=== PATIENT | female | born 2000 | race Caucasian/White ===

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

== ENCOUNTER 2022-05-20 17:13 | Emergency (ER) | payer BC, MEDICAID ==
[2022-05-20 17:38] VITALS: O2SAT 100
[2022-05-20 18:11] LABS: Basophil (Absolute #) 0.04 x10^3/uL (0-0.4); Eosinophil % 2.3 % (0.00-5.0); Eosinophil (Absolute #) 0.14 x10^3/uL (0-0.5); Hematocrit 34.1 % (35-47); Hemoglobin 10.5 g/dL (12.0-16.0); Lymphocyte (Absolute #) 2.21 x10^3/uL (1.0-4.6); Mean Cell Volume 76.6 fL (78-100); Mean Corpuscular Hemoglobin 23.6 pg (26-32); Mean Corpuscular Hgb Concent. 30.8 g/dL (32-36); Mean Platelet Volume 11.1 fL (7.5-11.0); Monocyte (Absolute #) 0.48 x10^3/uL (0.0-1.3); Neutrophil % 51.8 % (36.0-66.0); Platelet Count 240 x10^3/uL (150-450); Red Blood Count 4.45 x10^6/uL (4.1-5.4); Red Cell Distribution Width 14.2 % (11.5-14.0)
--- NOTE | 2022-05-20 18:19 | ERPHSYRPT ---
- History of Present Illness Source: patient, other (Significant other) Exam Limitations: no limitations Patient Subjective Stated Complaint: /cramping Triage Nursing Assessment: Patient ambulated back to ED and transferred self to bed. Patient A+O X3. Patient's skin pink, warm and dry. Patient states she felt like she was pregant and started spotting yesterday. Patient states she took a home test last night, which was positive. Patient states she started cramping in lower pelvic area today 6/10. Patient denies vaginal bleeding at this time. Physician History: 22 yo wf w + test yesterday at home presents w pelvic cramping since AM. Pain is 5/10 and nothing makes better or worse. She denies vaginal bleeding/discharge, along w dysuria/hematuria/fever/N/V/D. Pt has a 5mo child and is not breast feeding. Timing/Duration: today Activites at Onset: rest Quality: cramping Onset Location: suprapubic Pain Radiation: none Severity of Pain-Max: moderate Severity of Pain-Current: moderate Prior abdominal problems: none Sexual intercourse history: unprotected intercourse Modifying Factors: Improves With: nothing Associated Symptoms: denies symptoms, abdominal pain Allergies/Adverse Reactions: No Known Drug Allergies Allergy (Verified 05/20/22 17:31) Home Medications: Bupropion HCl 150 mg Sr [Wellbutrin SR 150 MG] 1 tab PO DAILY 05/20/22 [History] Hx Tetanus, Diphtheria Vaccination/Date Given: Yes Hx Influenza Vaccination/Date Given: No Hx Pneumococcal Vaccination/Date Given: No Travel Risk - International Travel Have you traveled outside of the country in past 3 weeks: No - Coronavirus Screening Are you exhibiting any of the following symptoms?: No Close contact with a COVID-19 positive Pt in past 14-21 Days: No - Vaccine Status Have you recieved a Covid-19 vaccination: Yes Meat Scrubber: Moderna - Vaccination Dates Date of 2cond Vaccination (if applicable): na - Review of Systems Constitutional: No Symptoms Eyes: No Symptoms Ears, Nose, & Throat: No Symptoms Respiratory: No Symptoms Cardiac: No Symptoms Abdominal/Gastrointestinal: No Symptoms, Abdominal Pain Genitourinary Symptoms: No Symptoms, Musculoskeletal: No Symptoms Skin: No Symptoms Neurological: No Symptoms Psychological: No Symptoms Endocrine: No Symptoms Hematologic/Lymphatic: No Symptoms Immunological/Allergic: No Symptoms - Past Medical History Pertinent Past Medical History: Yes Neurological History: Migraines ENT History: No Pertinent History Cardiac History: No Pertinent History Respiratory History: No Pertinent History Endocrine Medical History: No Pertinent History Musculoskeletal History: No Pertinent History GI Medical History: No Pertinent History History: No Pertinent History Psycho-Social History: Anxiety, Depression Female Reproductive Disorders: No Pertinent History Other Medical History: HEART MURMER THAT IS NONSIGNIFICANT; CHRONIC MIGRAINES THAT SHE REPORTS TO HAVE ALMOST DAILY - Past Surgical History Past Surgical History: No Neuro Surgical History: No Pertinent History Cardiac: No Pertinent History Respiratory: No Pertinent History Gastrointestinal: No Pertinent History Genitourinary: No Pertinent History Musculoskeletal: No Pertinent History Female Surgical History: Section - Social History Smoking Status: Never smoker Exposure to second hand smoke: Yes Drug Use: methamphetamines, heroin Patient Lives Alone: No Significant Family History: heart disease - Female History Hx Last Menstrual Period: unknown Hx Now: Yes Gestational Age: unknown - Nursing Vital Signs Nursing Vital Signs: Initial Vital Signs Temperature 97.6 F 05/20/22 17:32 Pulse Rate 96 H 05/20/22 17:32 Respiratory Rate 18 05/20/22 17:32 Blood Pressure 127/90 05/20/22 17:32 O2 Sat by Pulse Oximetry 100 05/20/22 17:32 Pain Scale Pain Intensity 6 WNL - Physical Exam General Appearance: no apparent distress Eye Exam: PERRL/EOMI, eyes nml inspection Ears, Nose, Throat Exam: normal ENT inspection, TMs normal, pharynx normal, moist mucous membranes Neck Exam: normal inspection, non-tender, supple, full range of motion, No meningismus, No mass, No Brudzinski, No Kernig's Respiratory Exam: normal breath sounds, lungs clear, airway intact Cardiovascular Exam: regular rate/rhythm, normal heart sounds, normal peripheral pulses, capillary refill <2 sec, No murmur Gastrointestinal/Abdomen Exam: soft, normal bowel sounds, tenderness (Mild supra-pubic TTP wo guarding or rebound) Back Exam: normal inspection, normal range of motion, No CVA tenderness, No vertebral tenderness Extremity Exam: normal inspection, normal range of motion Neurologic Exam: alert, oriented x 3, cooperative, after school caregiver II-XII nml as tested, normal mood/affect, nml cerebellar function, nml station & gait, sensation nml Skin Exam: normal color, warm, dry, No rash Lymphatic Exam: No adenopathy SpO2 Interpretation: normal SpO2: 100 O2 Delivery: Room Air - Course Nursing assessment & vital signs reviewed: Yes Ordered Tests: Active Orders 24 hr Category Date Time Status CBC W DIFF Stat Lab 05/20/22 18:07 Completed HCG QUALITATIVE,SERUM Stat Lab 05/20/22 18:07 Completed UA W/RFX UR CULTURE Stat Lab 05/20/22 18:04 Completed Lab/Rad Data: Laboratory Result Diagrams 05/20/22 18:07 Laboratory Results 05/20/22 05/20/22 05/20/22 Range/Units 18:07 18:07 18:04 WBC 6.0 (4.0-10.5) x10^3/uL RBC 4.45 (4.1-5.4) x10^6/uL Hgb 10.5 L (12.0-16.0) g/dL Hct 34.1 L (35-47) % MCV 76.6 L (78-100) fL MCH 23.6 L (26-32) pg MCHC 30.8 L (32-36) g/dL RDW 14.2 H (11.5-14.0) % Plt Count 240 (150-450) x10^3/uL MPV 11.1 H (7.5-11.0) fL Gran % 51.8 (36.0-66.0) % Immature Gran % (Auto) 0.2 (0.00-0.4) % Nucleat RBC Rel Count 0.0 (0.00-0.1) % Eos # (Auto) 0.14 (0-0.5) x10^3/uL Immature Gran # (Auto) 0.01 (0.00-0.03) x10^3u/L Absolute Lymphs (auto) 2.21 (1.0-4.6) x10^3/uL Absolute Monos (auto) 0.48 (0.0-1.3) x10^3/uL Absolute Nucleated RBC 0.00 (0.00-0.01) x10^3u/L Lymphocytes % 37.0 (24.0-44.0) % Monocytes % 8.0 (0.0-12.0) % Eosinophils % 2.3 (0.00-5.0) % Basophils % 0.7 (0.0-0.4) % Absolute Granulocytes 3.10 (1.4-6.9) x10^3/uL Basophils # 0.04 (0-0.4) x10^3/uL Serum , Qual NEGATIVE (Negative) Urine Color Yellow (Yellow) Urine Appearance Clear (Clear) Urine pH 7.0 (4.6-8.0) Ur Specific [place] 1.025 (1.005-1.030) Urine Protein Negative (Negative) Urine Ketones Negative (Negative) Urine Blood Negative (Negative) Urine Nitrite Negative (Negative) Urine Bilirubin Negative (Negative) Urine Urobilinogen 1.0 A (0.2) mg/dL Ur Leukocyte Esterase Trace A (Negative) U Hyaline Cast (Auto) 0-2 (0-2) /LPF Urine Microscopic RBC 0-2 (0-5) /HPF Urine Microscopic WBC 3-5 (0-5) /HPF Ur Epithelial Cells Few (None Seen) /HPF Urine Bacteria None Seen (None Seen) /HPF Urine Culture Reflexed NO (NO) Urine Glucose Negative (Negative) mg/dL - Progress Progress Note: 05/20/22 18:33 Pt in NAD wo evidence of or acute abdomen. Doubt PID as no vaginal discharge or fever. All labs reviewed and results shared w pt. 05/20/22 18:34 05/20/22 18:38 Counseled pt/family regarding: lab results, diagnosis, need for follow-up - Departure Departure Disposition: Home Clinical Impression: Pelvic cramping Condition: Stable Critical Care Time: No Referrals: KALLIE LAM NP [Primary Care Provider] - Follow up/PCP as directed Instructions: Pelvic Pain ED Additional Instructions: Motrin/Tylenol for pain Follow up with your family MD or Ob in 1-2 days Return to ER for increasing pain or temperature greater than 100.5
[2022-05-20 18:22] LABS: Appearance Clear (Clear); Bacteria None Seen /HPF (None Seen); Bilirubin Negative (Negative); Blood Negative (Negative); Epithelial Cells Few /HPF (None Seen); Glucose Negative (Negative); Hyaline Casts 0-2 /LPF (0-2); Ketones Negative (Negative); Leukocyte Esterase Trace (Negative); Nitrite Negative (Negative); Protein,Urine Dip Negative (Negative); RBC 0-2 /HPF (0-5); Specific Gravity 1.025 (1.005-1.030)
[2022-05-20 18:25] LABS: ADD URINE CULTURE? NO (NO)
[2022-05-20 18:39] VITALS: BP 111/70; PULSE 79
== END 2022-05-20 18:45 | disposition home or self-care (01) ==
LOC: ED 17:13
DX: R10.2 Pelvic and perineal pain (principal); Z79.899 Other long term (current) drug therapy
CPT/HCPCS: 36415; 81001; 84703; 85025; 99282

== ENCOUNTER 2022-08-17 23:22 | Emergency (ER) | payer MEDICAID ==
[2022-08-17 23:40] VITALS: O2SAT 100
[2022-08-17] MEDS ORDERED: TYLENOL 325 MG PO STA (23:43)
--- NOTE | 2022-08-17 23:43 | ERPHSYRPT ---
- History of Present Illness Time Seen by Provider: 08/17/22 23:43 Source: patient Exam Limitations: no limitations Patient Subjective Stated Complaint: [place] my foot went in a hole and twisted it. Triage Nursing Assessment: pt ambulated into the er; pt is axo x4; c/o rt ankle pain; no swelling, deformity, or swelling present; no respiratory distress present; skin PDW; hypertensive Physician History: Patient reports twisting ankle last week and had been walking it off, but today she twisted the ankle again while [place]. Her pain is on the lateral aspect of the right ankle. There is some mild swelling, no bruising. She is able to walk on the ankle. No numbness or tingling. She does report previous sprains. No surgeries. No otc meds trialed. Method of Injury: twisted Occurred: this afternoon Quality: constant, aching, dullness Severity of Pain-Max: moderate Severity of Pain-Current: moderate Lower Extremities Pain: ankle: right Modifying Factors: Improves With: rest. Worsens With: movement Associated Symptoms: none Allergies/Adverse Reactions: No Known Drug Allergies Allergy (Verified 08/17/22 23:30) Home Medications: Bupropion HCl 150 mg Sr [Wellbutrin SR 150 MG] 2 tab PO DAILY 05/20/22 [History] Atogepant [Qulipta] 1 tab PO DAILY 08/17/22 [History] Hx Tetanus, Diphtheria Vaccination/Date Given: Yes Hx Influenza Vaccination/Date Given: No Hx Pneumococcal Vaccination/Date Given: No Travel Risk - International Travel Have you traveled outside of the country in past 3 weeks: No - Coronavirus Screening Are you exhibiting any of the following symptoms?: No Close contact with a COVID-19 positive Pt in past 14-21 Days: No - Vaccine Status Have you recieved a Covid-19 vaccination: Yes Cloth Presser: Moderna - Vaccination Dates Date of 2cond Vaccination (if applicable): unknown - Review of Systems Constitutional: No Symptoms Eyes: No Symptoms Ears, Nose, & Throat: No Symptoms Respiratory: No Symptoms Cardiac: No Symptoms Abdominal/Gastrointestinal: No Symptoms Genitourinary Symptoms: No Symptoms Musculoskeletal: Injury, Joint Pain (right ankle), Joint Swelling (right ankle), No Deformity, No Joint Redness Skin: No Symptoms Neurological: No Symptoms Psychological: No Symptoms Endocrine: No Symptoms Hematologic/Lymphatic: No Symptoms Immunological/Allergic: No Symptoms All Other Systems: Reviewed and Negative - Past Medical History Pertinent Past Medical History: Yes Neurological History: Migraines ENT History: No Pertinent History Cardiac History: No Pertinent History, Other Respiratory History: No Pertinent History Endocrine Medical History: No Pertinent History Musculoskeletal History: No Pertinent History GI Medical History: No Pertinent History History: No Pertinent History Psycho-Social History: Anxiety, Depression Female Reproductive Disorders: No Pertinent History Other Medical History: HEART MURMER THAT IS NONSIGNIFICANT; CHRONIC MIGRAINES THAT SHE REPORTS TO HAVE ALMOST DAILY - Past Surgical History Past Surgical History: No Neuro Surgical History: No Pertinent History Cardiac: No Pertinent History Respiratory: No Pertinent History Gastrointestinal: No Pertinent History Genitourinary: No Pertinent History Musculoskeletal: No Pertinent History Female Surgical History: Section - Social History Smoking Status: Light tobacco smoker Exposure to second hand smoke: Yes Drug Use: none, methamphetamines, heroin Patient Lives Alone: No Significant Family History: heart disease - Female History Hx Now: No - Nursing Vital Signs Nursing Vital Signs: Initial Vital Signs Temperature 96.7 F 08/17/22 23:32 Pulse Rate 93 H 08/17/22 23:32 Respiratory Rate 14 08/17/22 23:32 Blood Pressure 149/80 08/17/22 23:32 O2 Sat by Pulse Oximetry 100 08/17/22 23:32 Pain Scale Pain Intensity 7 - Physical Exam General Appearance: no apparent distress Eyes, Ears, Nose, Throat Exam: normal ENT inspection Neck Exam: normal inspection Ankle Exam: right ankle: normal inspection, normal range of motion, bone tenderness (lateral malleolus), pain, soft tissue tenderness, swelling Neuro/Tendon Exam: normal sensation, normal motor functions, responds to pain, no evidence tendon injury Mental Status Exam: alert, oriented x 3, cooperative Skin Exam: normal color, warm, dry SpO2 Interpretation: normal SpO2: 100 O2 Delivery: Room Air - Course Nursing assessment & vital signs reviewed: Yes - Radiology Exams Right Ankle X-ray Interpretation: Interpreted by me, Negative Ordered Tests: Active Orders 24 hr Category Date Time Status Ice Pack, Apply ONCE Care 08/17/22 23:43 Active ANKLE (3 VIEWS) Stat Exams 08/17/22 23:31 Taken Medication Summary Discontinued Medications Generic Name Dose Route Start Last Admin Trade Name Freq PRN Reason Stop Dose Admin Acetaminophen 975 mg 08/17/22 23:43 08/17/22 23:47 Acetaminophen 325 Mg Tablet PO 08/17/22 23:44 975 mg STAT STA Administration Acetaminophen Confirm 08/17/22 23:46 Acetaminophen 325 Mg Tablet Administered 08/17/22 23:47 Dose 975 mg .ROUTE .STK-MED ONE - Progress Progress: improved Progress Note: 08/18/22 00:11 XR showed no fracture. Will d/c home w/ violetta wrap. Recommend rest, ice, compression, elevation. F/U at walk in ortho clinic on Saturday if no improvement. Ok to take Tylenol/Ibuprofen prn for pain. Counseled pt/family regarding: need for follow-up, rad results Medical Desision Making - Diagnostic Testing Diagnostic test were ordered, analyzed, and reviewed by me: Yes Radiological Interpretation: Interpreted by me - Risk of complications Low Risk: Low risk of morbidity from additional dx testing or treatment - Departure Departure Disposition: Home Clinical Impression: Right ankle sprain, Right ankle instability Condition: Good Critical Care Time: No Referrals: KALLIE LAM NP [Primary Care Provider] - Follow up/PCP as directed ORTHO - DILLON PINK NP [NON-STAFF PHY W/O PRIVILEGES] - Follow up/PCP as directed Instructions: Ankle Sprain (DC) Additional Instructions: You have been evaluated in the Emergency Department today for ankle pain. Your evaluation showed no fracture of your ankle. We have placed your ankle in an violetta bandage for compression. Please rest, ice, and elevate your ankle. We recommend you take 600mg ibuprofen every 6 hours or tylenol 650mg every 6 hours as needed for pain. If needed, you can alternate these medications so that you take one medication every 3 hours. For instance, at noon take ibuprofen, then at 3pm take tylenol, then at 6pm take ibuprofen. F/U w/ walk in ortho clinic on Saturday morning if no improvement. Return to the Emergency Department if you experience worsening pain, numbness, tingling, change of color in your toes, or any other concerning symptoms. Thank you for choosing us for your care.
[2022-08-17] MEDS ORDERED: TYLENOL 325 MG ONE (23:46)
[2022-08-18 00:31] VITALS: BP 138/80; PULSE 94
--- NOTE | 2022-08-18 08:09 | XRAY ---
Indication: Pain following fall. Comparison: December 24, 2015 3 view right ankle obtained. Again no bony, articular, or soft tissue abnormalities.
== END 2022-08-18 00:31 | disposition home or self-care (01) ==
LOC: ED 23:22
DX: S93.401A Sprain of unspecified ligament of right ankle, initial encounter (principal); X50.0XXA Overexertion from strenuous movement or load, initial encounter; Y93.01 Activity, walking, marching and hiking; Y92.821 Forest as the place of occurrence of the external cause; M25.371 Other instability, right ankle; Z79.899 Other long term (current) drug therapy; Z72.0 Tobacco use
CPT/HCPCS: 73610; 99282; A9270-GY

== ENCOUNTER 2023-04-29 14:03 | Emergency (ER) | payer MEDICAID ==
[2023-04-29 14:12] VITALS: BP 135/94; PULSE 90; RESP 20; TEMP 97.1; O2SAT 99
[2023-04-29] MEDS ORDERED: TORAdol 30 mg Injection IM ONE (14:16)
--- NOTE | 2023-04-29 14:21 | ERPHSYRPT ---
- History of Present Illness Source: patient Exam Limitations: no limitations Patient Subjective Stated Complaint: Pt states "I fell out of my husbands truck and my right foot and ankle hurts." Triage Nursing Assessment: Pt presented alert and oriented X 3, skin wpd. Pt am bulates with a limp. Pt right ankle swollen and slightly bruised, to right glass cut off tender to touch Physician History: Patient is a 23-year-old female who fell out of her 's semitruck today injuring her right foot and ankle. Pain is moderate to severe and worse with weight bearing. She denies any other injuries at this time, including head injury, cervical injury, T or L-spine injury, chest injury, abdominal injury, and hip pain. Method of Injury: fell Occurred: just prior to arrival Quality: constant Severity of Pain-Max: severe Severity of Pain-Current: moderate Lower Extremities Pain: foot: right, ankle: right Modifying Factors: Improves With: movement Associated Symptoms: none Allergies/Adverse Reactions: No Known Drug Allergies Allergy (Verified 08/17/22 23:30) Home Medications: Bupropion HCl 150 mg Sr [Wellbutrin SR 150 MG] 2 tab PO DAILY 05/20/22 [History] Atogepant [Qulipta] 1 tab PO DAILY 08/17/22 [History] Hx Tetanus, Diphtheria Vaccination/Date Given: Yes Hx Influenza Vaccination/Date Given: No Hx Pneumococcal Vaccination/Date Given: No Immunizations Up to Date: No Travel Risk - International Travel Have you traveled outside of the country in past 3 weeks: No - Coronavirus Screening Are you exhibiting any of the following symptoms?: No Close contact with a COVID-19 positive Pt in past 14-21 Days: No - Vaccine Status Have you recieved a Covid-19 vaccination: Yes Registered Art Therapist: Moderna - Vaccination Dates Date of 2cond Vaccination (if applicable): unknown - Review of Systems Constitutional: No Symptoms Eyes: No Symptoms Ears, Nose, & Throat: No Symptoms Respiratory: No Symptoms Cardiac: No Symptoms Abdominal/Gastrointestinal: No Symptoms Genitourinary Symptoms: No Symptoms Skin: No Symptoms Neurological: No Symptoms Psychological: No Symptoms Endocrine: No Symptoms Hematologic/Lymphatic: No Symptoms Immunological/Allergic: No Symptoms - Past Medical History Pertinent Past Medical History: Yes Neurological History: Migraines ENT History: No Pertinent History Cardiac History: No Pertinent History, Other Respiratory History: No Pertinent History Endocrine Medical History: No Pertinent History Musculoskeletal History: No Pertinent History GI Medical History: No Pertinent History History: No Pertinent History Psycho-Social History: Anxiety, Depression Female Reproductive Disorders: No Pertinent History Other Medical History: HEART MURMER THAT IS NONSIGNIFICANT; CHRONIC MIGRAINES THAT SHE REPORTS TO HAVE ALMOST DAILY - Past Surgical History Past Surgical History: No Neuro Surgical History: No Pertinent History Cardiac: No Pertinent History Respiratory: No Pertinent History Gastrointestinal: No Pertinent History Genitourinary: No Pertinent History Musculoskeletal: No Pertinent History Female Surgical History: Section - Social History Smoking Status: Light tobacco smoker Exposure to second hand smoke: Yes Drug Use: none, methamphetamines, heroin Patient Lives Alone: No Significant Family History: heart disease - Female History Hx Last Menstrual Period: 03/27/2023 Hx Now: No - Nursing Vital Signs Nursing Vital Signs: Initial Vital Signs Temperature 97.1 F 04/29/23 14:07 Pulse Rate 90 04/29/23 14:07 Respiratory Rate 20 04/29/23 14:07 Blood Pressure 135/94 04/29/23 14:07 O2 Sat by Pulse Oximetry 99 04/29/23 14:07 Pain Scale Pain Intensity 10 Within normal limits - Physical Exam General Appearance: no apparent distress Eyes, Ears, Nose, Throat Exam: normal ENT inspection, TMs normal, pharynx normal, moist mucous membranes Neck Exam: normal inspection, non-tender, supple, full range of motion, other (C-spine nontender to palpation), No Brudzinski, No Kernig's, No meningismus Cardiovascular/Respiratory Exam: normal breath sounds, regular rate/rhythm, heart sounds normal Gastrointestinal/Abdominal Exam: non-tender, soft, no organomegaly Back Exam: normal inspection, No vertebral tenderness (T and L-spine nontender to palpation) Hips Exam: bilateral: non-tender, normal inspection, normal range of motion, no evidence of injury Legs Exam: bilateral leg: non-tender, normal inspection, normal range of motion, no evidence of injury Knees Exam: bilateral knee: non-tender, normal inspection, normal range of motion, no evidence of injury Ankle Exam: right ankle: swelling (Right ankle with moderate edema, tenderness to palpation laterally, pain with inversion, good pedal pulse, distal sensation, and capillary return.), left ankle: non-tender, normal inspection, normal range of motion, no evidence of injury Foot Exam: right foot: bone tenderness (Right foot tenderness to palpation laterally, no edema or deformity, good pedal pulse, distal sensation, and capillary return.) Neuro/Tendon Exam: normal sensation, normal motor functions, normal tendon functions, responds to pain, no evidence tendon injury, No motor deficit, No sensory deficit Mental Status Exam: alert, oriented x 3, cooperative Skin Exam: normal color, warm, dry SpO2 Interpretation: normal SpO2: 99 O2 Delivery: Room Air - Radiology Exams Foot X-ray Interpretation: Reviewed by me, Discussed w/ radiologist (Right foot negative per radiologist) Ankle X-ray Interpretation: Reviewed by me, Discussed w/ radiologist (Right ankle negative per radiologist) Ordered Tests: Active Orders 24 hr Category Date Time Status Britton Bandage Application -[facility] STAT Care 04/29/23 14:51 Completed Crutches STAT Care 04/29/23 14:51 Completed ANKLE (3 VIEWS) Stat Exams 04/29/23 14:15 Completed FOOT (MINIMUM 3 VIEWS) Stat Exams 04/29/23 14:15 Completed Medication Summary Discontinued Medications Generic Name Dose Route Start Last Admin Trade Name Freq PRN Reason Stop Dose Admin Ketorolac Tromethamine 30 mg 04/29/23 14:16 04/29/23 14:27 Ketorolac Tromethamine 30 Mg/Ml Inj IM 04/29/23 14:17 30 mg STAT ONE Administration Ketorolac Tromethamine Confirm 04/29/23 14:24 Ketorolac Tromethamine 30 Mg/Ml Inj Administered 04/29/23 14:25 Dose 30 mg .ROUTE .STK-MED ONE - Progress Progress Note: 04/29/23 19:14 Nursing note vital signs reviewed. No food or housing insecurity noted. 04/29/23 19:14 30 mg IM Toradol with improvement in pain. X-ray results reviewed and shared with patient. Britton wrap right lower extremity per nursing/neurovascular intact. 04/29/23 19:15 04/29/23 19:15 Crutches provided per nursing along with teaching. Toradol prescription sent to her pharmacy. Patient advised to follow-up with her family [facility] orthopedic clinic for continued pain and weight bearing as tolerated for now. Counseled pt/family regarding: diagnosis, need for follow-up, rad results - Departure Departure Disposition: Home Clinical Impression: Right ankle sprain, Contusion of right foot Condition: Stable Critical Care Time: No Referrals: KALLIE LAM NP [Primary Care Provider] - Follow up/PCP as directed Instructions: Foot Sprain (DC), Ankle Sprain ED Additional Instructions: Ice for 12 to 24 hours. Toradol as needed for pain. Weight bearing as tolerated. Britton wrap for 2 to 3 days. Follow-up in the orthopedic clinic Saturday through Saturday 8 to 10 AM for continued pain. Return to ER as needed. Prescriptions: Ketorolac Trometh 10 mg Tab [TORAdol 10 MG TABLET] 10 mg PO TID PRN PRN #10 tablet PRN Reason: Pain
[2023-04-29] MEDS ORDERED: TORAdol 30 mg Injection ONE (14:24)
--- NOTE | 2023-04-29 14:34 | XRAY ---
Indication: Pain following fall. Comparison: None 3 view right ankle demonstrate mild soft tissue swelling. No other bony, articular, or soft tissue abnormalities.
--- NOTE | 2023-04-29 14:36 | XRAY ---
Indication: Pain following fall. Comparison: None 3 nonweightbearing views right foot demonstrates normal bones, articulation, and soft tissues.
== END 2023-04-29 15:03 | disposition home or self-care (01) ==
LOC: ED 14:03
DX: S93.401A Sprain of unspecified ligament of right ankle, initial encounter (principal); S90.31XA Contusion of right foot, initial encounter; W17.89XA Other fall from one level to another, initial encounter; Z79.899 Other long term (current) drug therapy; Z72.0 Tobacco use
CPT/HCPCS: 73610; 73630; 96372; 99283; J1885

== ENCOUNTER 2024-01-07 18:21 | Emergency (ER) | payer OTHER ==
[2024-01-07 18:37] VITALS: RESP 18; TEMP 97
--- NOTE | 2024-01-07 19:48 | ERPHSYRPT ---
- History of Present Illness Time Seen by Provider: 01/07/24 19:35 Source: patient Exam Limitations: no limitations Patient Subjective Stated Complaint: Pt states "I cannot keep anything down since 8 am this morning." Triage Nursing Assessment: Pt presented alert and oriented X 3, skin pwd. Pt ambulates with an upright steady gait, able to speak in clear full sentences. Pt resting comfortably on the bed. Physician History: Patient is a 23-year-old female who is currently 6 weeks . Patient states that she has been vomiting since this morning. Patient unable to tolerate p.o. No other complaints. No vaginal bleeding or pelvic pain. Symptoms are mild to moderate in intensity. No specific worsening or improving factors. Patient otherwise feels well. She voices no other complaints or concerns at this time. Portions of this note were created with voice recognition technology. There may be grammatical, spelling, punctuation or sound alike errors Timing/Duration: today Severity: moderate Modifying Factors: Improves With: nothing Associated Symptoms: denies symptoms Allergies/Adverse Reactions: peparoni Allergy (Severe, Uncoded 01/07/24 18:38) Swelling Home Medications: Pnv 119/Iron Fum/Folic Acid [ 19 Tablet] 1 tab PO DAILY 01/07/24 [History] Hx Tetanus, Diphtheria Vaccination/Date Given: Yes Hx Influenza Vaccination/Date Given: No Hx Pneumococcal Vaccination/Date Given: No Immunizations Up to Date: No Travel Risk - International Travel Have you traveled outside of the country in past 3 weeks: No - Emerging Infectious Disease Are you exhibiting symptoms associated with any current EIDs: No - Review of Systems Constitutional: No Symptoms, No Fever, No Chills Eyes: No Symptoms Ears, Nose, & Throat: No Symptoms Respiratory: No Symptoms, No Cough, No Dyspnea Cardiac: No Symptoms, No Chest Pain, No Edema, No Syncope Abdominal/Gastrointestinal: No Symptoms, No Abdominal Pain, No Nausea, No Vomiting, No Diarrhea Genitourinary Symptoms: No Symptoms, No Dysuria Musculoskeletal: No Symptoms, No Back Pain, No Neck Pain Skin: No Symptoms, No Rash Neurological: No Symptoms, No Dizziness, No Focal Weakness, No Sensory Changes Psychological: No Symptoms Endocrine: No Symptoms Hematologic/Lymphatic: No Symptoms Immunological/Allergic: No Symptoms All Other Systems: Reviewed and Negative - Past Medical History Pertinent Past Medical History: Yes Neurological History: Migraines ENT History: No Pertinent History Cardiac History: No Pertinent History, Other Respiratory History: No Pertinent History Endocrine Medical History: No Pertinent History Musculoskeletal History: No Pertinent History GI Medical History: No Pertinent History History: No Pertinent History Psycho-Social History: Anxiety, Depression Female Reproductive Disorders: No Pertinent History Other Medical History: HEART MURMER THAT IS NONSIGNIFICANT; CHRONIC MIGRAINES THAT SHE REPORTS TO HAVE ALMOST DAILY - Past Surgical History Past Surgical History: Yes Neuro Surgical History: No Pertinent History Cardiac: No Pertinent History Respiratory: No Pertinent History Gastrointestinal: No Pertinent History Genitourinary: No Pertinent History Musculoskeletal: No Pertinent History Female Surgical History: Section Significant Family History: heart disease - Female History Hx Last Menstrual Period: 10/22/2023 Hx Now: Yes Gestational Age: 6 w and 5d - Social History Smoking Status: Former smoker Exposure to second hand smoke: No Drug Use: none Patient Lives Alone: No - Social Determinants of Health Will the patient participate in the screening: Yes Do you worry about a steady place to live?: No Do you have any problems with any of the following?: No known problems In the past 12 months,have you had to go without utilities?: No Transportation Issues: No Has anyone in your support network made you feel unsafe?: No Have you or anyone in your house had to go without enough: No - Nursing Vital Signs Nursing Vital Signs: Initial Vital Signs Temperature 97.0 F 01/07/24 18:29 Pulse Rate 99 H 01/07/24 18:29 Respiratory Rate 18 01/07/24 18:29 Blood Pressure 142/68 01/07/24 18:29 O2 Sat by Pulse Oximetry 97 01/07/24 18:29 Pain Scale Pain Intensity 0 - Physical Exam General Appearance: no apparent distress, alert Eye Exam: PERRL/EOMI, eyes nml inspection Ears, Nose, Throat Exam: normal ENT inspection, moist mucous membranes Neck Exam: normal inspection, non-tender, supple, full range of motion Respiratory Exam: normal breath sounds, lungs clear, No respiratory distress Cardiovascular Exam: regular rate/rhythm, normal heart sounds, normal peripheral pulses Gastrointestinal/Abdomen Exam: soft, normal bowel sounds, No tenderness, No mass Back Exam: normal inspection, normal range of motion, No CVA tenderness, No vertebral tenderness Extremity Exam: normal inspection, normal range of motion, pelvis stable Neurologic Exam: alert, oriented x 3, cooperative, normal mood/affect, nml cerebellar function, nml station & gait, sensation nml, No motor deficits Skin Exam: normal color, warm, dry, No rash Lymphatic Exam: No adenopathy SpO2 Interpretation: normal SpO2: 97 O2 Delivery: Room Air - Course Nursing assessment & vital signs reviewed: Yes Ordered Tests: Active Orders 24 hr Category Date Time Status IV Insertion STAT Care 01/07/24 19:42 Active UA W/RFX UR CULTURE Stat Lab 01/07/24 19:47 Completed Medication Summary Discontinued Medications Generic Name Dose Route Start Last Admin Trade Name Kailyn PRN Reason Stop Dose Admin Metoclopramide HCl 10 mg 01/07/24 19:47 01/07/24 20:02 Metoclopramide Hcl 10 Mg/2 Ml Vial IV 01/07/24 19:48 10 mg STAT ONE Administration Metoclopramide HCl Confirm 01/07/24 19:58 Metoclopramide Hcl 10 Mg/2 Ml Vial Administered 01/07/24 19:59 Dose 10 mg .ROUTE .STK-MED ONE Lab/Rad Data: Laboratory Results 01/07/24 Range/Units 19:47 Urine Color Yellow (Yellow) Urine Appearance Turbid A (Clear) Urine pH 5.5 (4.6-8.0) Ur Specific [place] >=1.030 A (1.005-1.030) Urine Protein Trace A (Negative) Urine Glucose (UA) Negative (Negative) mg/dL Urine Ketones Trace A (Negative) Urine Blood Negative (Negative) Urine Nitrite Negative (Negative) Urine Bilirubin Negative (Negative) Urine Urobilinogen 1.0 A (0.2) mg/dL Ur Leukocyte Esterase Negative (Negative) U Hyaline Cast (Auto) NONE SEEN (0-2) /LPF Urine Microscopic RBC 6-10 A (0-5) /HPF Urine Microscopic WBC 3-5 (0-5) /HPF Ur Epithelial Cells Moderate A (None Seen) /HPF Urine Bacteria Few A (None Seen) /HPF Urine Culture Reflexed NO (NO) - Progress Progress: improved Progress Note: 01/07/24 21:38 Patient is no longer on bupropion. Prescription for Reglan forwarded to patient's pharmacy per patient's request. Patient received Reglan in our ED. Patient states nausea resolved. Patient tolerated p.o. Urinalysis suggest dehydration. However patient states that she will orally hydrate as she does not want to stay in the ED for IV fluids. Patient appears well she voices no other complaints or concerns at this time. Portions of this note were created with voice recognition technology. There may be grammatical, spelling, punctuation or sound alike errors Complexity of problem addressed is moderate acute complicated. No critical care time. Complex of data reviewed and analyzed is moderate. Test ordered test reviewed results analyzed and correlated clinically with history and physical exam. Risk of complication and or risk of morbidity/mortality patient management is low. Vital stable. Time spent to discharge patient approximately 15 minutes. Plan of care established for shared decision making. No social determinants of health present to impede follow-up. Portions of this note were created with voice recognition technology. There may be grammatical, spelling, punctuation or sound alike errors Counseled pt/family regarding: lab results, diagnosis, need for follow-up - Departure Departure Disposition: Home Clinical Impression: Nausea and vomiting during Condition: Stable Critical Care Time: No Referrals: KALLIE LAM [facility] [Primary Care Provider] - Follow up/PCP as directed Additional Instructions: Discharge/Care Plan DANETTE WITT LUIS ARMANDO BROUSSARD was seen on 01/07/24 in the Emergency Room. The patient was counseled regarding Diagnosis,Lab results, Imaging studies, need for follow up and when to return to the Emergency Room. Prescriptions given: Discharge Note I have spoken with the patient and/or caregivers. I have explained the patient's condition, diagnosis and treatment plan based on the information available to me at this time. I have answered the patient's and/or caregiver's questions and addressed any concerns. The patient and/or caregivers have as good understanding of the patient's diagnosis, condition and treatment plan as can be expected at this point. The vital signs have been stable. The patient's condition is stable and appropriate for discharge from the emergency department. The patient will pursue further outpatient evaluation with the primary care physician or other designated or consulting physician as outlined in the discharge instructions. The patient and/or caregivers are agreeable to this plan of care and follow-up instructions have been explained in detail. The patient and/or caregivers have received these instruction. The patient/and or caregivers are aware that any significant change in condition or worsening of symptoms should prompt an immediate return to this or the closest emergency department or call 911. Prescriptions: Metoclopramide HCl 10 mg [Reglan 10 MG] 10 mg PO TID PRN #9 tablet PRN Reason: Nausea/Vomiting
[2024-01-07] MEDS ORDERED: Reglan 10 MG/2 ML ONE (19:58)
[2024-01-07 20:00] LABS: Appearance Turbid (Clear); Bacteria Few /HPF (None Seen); Bilirubin Negative (Negative); Blood Negative (Negative); Epithelial Cells Moderate /HPF (None Seen); Glucose, Urine Negative (Negative); Hyaline Casts NONE SEEN /LPF (0-2); Ketones Trace (Negative); Leukocyte Esterase Negative (Negative); Nitrite Negative (Negative); Ph 5.5 (4.6-8.0); Protein,Urine Dip Trace (Negative); Specific Gravity >=1.030 (1.005-1.030)
[2024-01-07 20:01] LABS: ADD URINE CULTURE? NO (NO)
[2024-01-07] MEDS: Reglan 10 MG/2 ML IV ONE (20:02)
[2024-01-07 21:10] VITALS: BP 156/94; PULSE 96
[2024-01-07 21:30] VITALS: O2SAT 97
== END 2024-01-07 21:55 | disposition home or self-care (01) ==
LOC: ED 18:21
DX: O21.9 Vomiting of pregnancy, unspecified (principal); Z3A.01 Less than 8 weeks gestation of pregnancy; Z79.899 Other long term (current) drug therapy
CPT/HCPCS: 81001; 96374; 99283

== ENCOUNTER 2024-06-24 15:28 | Emergency (ER) | payer OTHER ==
--- NOTE | 2024-06-24 15:40 | ERPHSYRPT ---
- History of Present Illness Time Seen by Provider: 06/24/24 15:33 Source: patient, family Exam Limitations: no limitations Physician History: This is a 24-year-old white female patient who underwent a Tdap injection 2 days ago and she was concerned there was some redness and mild swelling around the injection site. She has not had any fevers. Patient is 29-1/2 weeks . Patient did take a Benadryl approximately 2 hours prior to arrival to our emergency department. Timing/Duration: day(s) (2) Severity: mild Location: extremities (Left deltoid) Modifying Factors: Improves With: antihistamine Associated Symptoms: denies symptoms Allergies/Adverse Reactions: tetanus and diphtheria toxoids Allergy (Verified 06/24/24 15:43) Swelling peparoni Allergy (Severe, Uncoded 06/24/24 15:43) Swelling Home Medications: Pnv 119/Iron Fum/Folic Acid [ 19 Tablet] 1 tab PO DAILY 01/07/24 [History] Hx Tetanus, Diphtheria Vaccination/Date Given: Yes Hx Influenza Vaccination/Date Given: No Hx Pneumococcal Vaccination/Date Given: No Travel Risk - International Travel Have you traveled outside of the country in past 3 weeks: No - Emerging Infectious Disease Are you exhibiting symptoms associated with any current EIDs: No - Review of Systems Constitutional: No Symptoms Eyes: No Symptoms Ears, Nose, & Throat: No Symptoms Respiratory: No Symptoms Cardiac: No Symptoms Abdominal/Gastrointestinal: No Symptoms Genitourinary Symptoms: No Symptoms Musculoskeletal: No Symptoms Skin: No Symptoms, Other (Mild localized reaction around the left deltoid Tdap injection site) Neurological: No Symptoms Psychological: No Symptoms Endocrine: No Symptoms Hematologic/Lymphatic: No Symptoms Immunological/Allergic: No Symptoms All Other Systems: Reviewed and Negative - Past Medical History Pertinent Past Medical History: Yes Neurological History: Migraines ENT History: No Pertinent History Cardiac History: No Pertinent History, Other Respiratory History: No Pertinent History Endocrine Medical History: No Pertinent History Musculoskeletal History: No Pertinent History GI Medical History: No Pertinent History History: No Pertinent History Psycho-Social History: Anxiety, Depression Female Reproductive Disorders: No Pertinent History Other Medical History: HEART MURMER THAT IS NONSIGNIFICANT; CHRONIC MIGRAINES THAT SHE REPORTS TO HAVE ALMOST DAILY - Past Surgical History Past Surgical History: Yes Neuro Surgical History: No Pertinent History Cardiac: No Pertinent History Respiratory: No Pertinent History Gastrointestinal: No Pertinent History Genitourinary: No Pertinent History Musculoskeletal: No Pertinent History Female Surgical History: Section Significant Family History: heart disease - Female History Hx Last Menstrual Period: 10/22/2023 - Social History Smoking Status: Former smoker Exposure to second hand smoke: No Drug Use: none Patient Lives Alone: No - Social Determinants of Health Will the patient participate in the screening: Yes Do you worry about a steady place to live?: No In the past 12 months,have you had to go without utilities?: No Transportation Issues: No Has anyone in your support network made you feel unsafe?: No Have you or anyone in your house had to go without enough: No - Nursing Vital Signs Nursing Vital Signs: Initial Vital Signs Temperature 98.1 F 06/24/24 15:34 Pulse Rate 100 H 06/24/24 15:34 Blood Pressure 146/102 06/24/24 15:34 O2 Sat by Pulse Oximetry 100 06/24/24 15:34 Pain Scale Pain Intensity 0 - Physical Exam General Appearance: no apparent distress, alert, anxiety Eye Exam: PERRL/EOMI, eyes nml inspection Ears, Nose, Throat Exam: normal ENT inspection, moist mucous membranes Neck Exam: normal inspection, non-tender, supple, full range of motion Respiratory Exam: normal breath sounds, lungs clear, airway intact, No chest tenderness, No respiratory distress Cardiovascular Exam: regular rate/rhythm, normal heart sounds, normal peripheral pulses Gastrointestinal/Abdomen Exam: No tenderness Rectal Exam: not done Back Exam: normal inspection, normal range of motion, No CVA tenderness Extremity Exam: normal inspection, normal range of motion, pelvis stable Neurologic Exam: alert, oriented x 3, cooperative, 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 No cellulitis. No evidence of infection) Lymphatic Exam: No adenopathy SpO2 Interpretation: normal O2 Delivery: Room Air - Course Nursing assessment & vital signs reviewed: Yes Ordered Tests: Medication Summary Discontinued Medications Generic Name Dose Route Start Last Admin Trade Name Freq PRN Reason Stop Dose Admin Famotidine 20 mg 06/24/24 15:40 Famotidine 20 Mg Tablet PO 06/24/24 15:41 STAT ONE - Progress Progress: unchanged Progress Note: 06/24/24 15:46 My medical decision making and the assignment of low complexity to this patient's medical issue today is based on review of the patient's past medical history, review the patient's medication list, review the patient drug allergy list, history present illness and physical findings on examination. No radiographic or laboratory studies are necessary. Differential diagnosis includes but is not limited to normal reaction to an injection of medication, allergic reaction, cellulitis Counseled pt/family regarding: diagnosis, need for follow-up Medical Desision Making - Diagnostic Testing Diagnostic test were ordered, analyzed, and reviewed by me: No - Risk of complications The pt has a mod risk of morbidity or mortality based on: Need for prescription drug management - Departure Departure Disposition: Home Clinical Impression: Injection site reaction Condition: Stable Critical Care Time: No Referrals: KALLIE LAM NP [Primary Care Provider] - Follow up/PCP as directed Additional Instructions: Watch for signs of cellulitis/enlarging area of redness. Continue Benadryl 25 mg orally 3 times a day for the next 3 to 4 days. Take the Pepcid medication as prescribed. Call your primary care provider and saw handle assembler today to make arrangements for a follow-up appointment for further evaluation and management. Prescriptions: Famotidine 20 mg [Pepcid 20 MG] 20 mg PO DAILY #5 tablet
[2024-06-24 15:41] VITALS: BP 146/102; PULSE 100; TEMP 98.1
[2024-06-24] MEDS: Pepcid 20 MG PO ONE (15:45)
[2024-06-24] MEDS ORDERED: Pepcid 20 MG ONE (15:45)
[2024-06-24 15:51] VITALS: O2SAT 98
== END 2024-06-24 15:56 | disposition home or self-care (01) ==
LOC: ED 15:28
DX: T88.1XXA Other complications following immunization, not elsewhere classified, initial encounter (principal); R23.4 Changes in skin texture; Z79.899 Other long term (current) drug therapy; Z33.1 Pregnant state, incidental
CPT/HCPCS: 99281; 99282; A9270-GY